=== PATIENT | male | born 1960 | race Caucasian/White ===

== ENCOUNTER 2018-10-02 10:45 | Day surgery (SDC) | payer MEDICARE ==
[2018-10-02] MEDS ORDERED: LIDOCAINE 2% MDV (20MG/ML) 20ML VIAL IV ONE (10:46)
[2018-10-02] MEDS ORDERED: PROPOFOL 10 MG/ML VIAL IV ONE (10:46)
--- NOTE | 2018-10-05 11:30 | Operative Note ---
DATE OF SURGERY: 10/02/2018 SURGEON: Leida Artis MD OPERATION: COLONOSCOPY. INDICATIONS: This is a 57-year-old male with history of colon polyps. Last colonoscopy was in 2013. He presented for surveillance colonoscopy. POSTOPERATIVE DIAGNOSES: 1. A 3 mm descending colon polyp that was removed by cold biopsy forceps. 2. A 3 mm sessile polyp in the sigmoid colon that was removed by cold biopsy forceps. 3. Otherwise normal colon. ANESTHESIA: Sedation is per Anesthesia. Pulse oximetry was monitored throughout the procedure to maintain O2 saturation of 90% or greater. Supplemental oxygen was administered via nasal cannula. Cardiac and vital signs were monitored throughout the duration of the procedure, and they were stable. The procedure of colonoscopy and risks and alternatives of the procedure, including the risk of bleeding and perforation, among others, were explained to the patient who voiced understanding and agreed to have the procedure done. Physical examination was performed, and the patient was found stable for sedation. PROCEDURE: The patient was placed in the left lateral position. Sedation was initiated. A digital rectal exam was performed and showed some mild external hemorrhoids with no palpable rectal masses. An Olympus PCF-180AL colonoscope was then inserted into the rectum under direct visualization. It was advanced to the cecum without difficulty. The ileocecal valve and appendiceal orifice were identified and photographed. The colonic mucosa was carefully examined upon introduction of the colonoscope. There were no lesions noted. The ileocecal valve was intubated and the ileal mucosa was inspected for about 10 cm and it appeared normal. The colonoscope was then withdrawn while carefully examining the colonic mucosal surfaces. In the terminal ileum, the cecum, ascending colon, and transverse colon mucosa appeared normal. In the descending colon was a 3 mm sessile polyp that was noted and was removed by cold biopsy forceps. In the sigmoid colon was another 3 mm polyp that was removed by cold biopsy forceps. There were no other lesions were noted. The colonoscope was then withdrawn into the rectum and retroflexion revealed no other lesions. The colonoscope was then withdrawn and the procedure was terminated. The patient tolerated the procedure well without any immediate complications. The patient remained with stable vital signs and was transferred to the recovery room. RECOMMENDATIONS: 1. The patient should be on a high-fiber diet. 2. The patient is to have a repeat colonoscopy for surveillance in 3 or 5 years depending on the histology of the polyps. Thank you for allowing me to participate in the care of your patient. CC: Tracy PALUMBO
== END 2018-10-02 12:38 | disposition home or self-care (01) ==
LOC: HOP 10:45
PROVIDERS: ATTEND Internal Medicine Gastroenterology
DX: Z12.11 Encounter for screening for malignant neoplasm of colon (principal); Z86.010 Personal history of colon polyps; D12.4 Benign neoplasm of descending colon; D12.5 Benign neoplasm of sigmoid colon